=== PATIENT | male | born 1985 | race Two or more races ===

== ENCOUNTER 2021-02-25 04:02 | Emergency (ER) | payer OTHER ==
[~2021-02-25] VITALS: Ht 172.7 cm; Wt 81.8 kg
[2021-02-25] MEDS ORDERED: methylPREDNISolone SOD SUCC PF 125 MG/2 ML VIAL. IM ONE (04:15)
[2021-02-25] MEDS ORDERED: hydrOXYzine 25 MG TABLET PO PRN (04:15)
[2021-02-25] MEDS ORDERED: FAMOTIDINE 20 MG TABLET. PO ONE (04:15)
[2021-02-25] MEDS ORDERED: FAMO40TA57 PO (04:23)
[2021-02-25] MEDS ORDERED: HYDR25TA PO (04:23)
--- NOTE | 2021-02-25 04:24 | PHYS DOC ---
Past Medical History Past Medical History: No Pertinent History Past Surgical History: No Surgical History Smoking Status: Never Smoker Alcohol Use: Occasionally General Adult EDM: Chief Complaint: SKIN RASH/ABSCESS HPI: HPI: Patient is a 36 year [id number] male presents with a chief complaint of itchy rash. Patient states he was diagnosed with Covid on Friday onset of rash was also Friday. Patient's rash is located on his chest back and groin area. Patient states last night rash started to itch. Patient has taken Benadryl for the itch with no relief. Review of Systems: Review of Systems: Review of systems: Constitutional symptoms- No fever, no chills. Eyes- No Discharge, No Visual Loss Respiratory symptoms- No shortness of breath, No wheezing, No Dyspnea on Exertion Cardiovascular Systems; No chest pain, No Palpitations, No syncope Gastrointestinal symptoms: NO abdominal pain, no nausea, no vomiting or diarr hea. Genitourinary symptoms: No dysuria. Musculoskeletal symptoms: No back pain No extremity pain. NEUROLOGICAL Symptoms: No headache, no generalized weakness; No focal Weakness Skin positive rash Heart Score: C/O Chest Pain: N/A Risk Factors: Risk Factors: DM, Current or recent (<one month) smoker, HTN, HLP, family hi story of CAD, obesity. Risk Scores: Score 0 - 3: 2.5% MACE over next 6 weeks - Discharge Home Score 4 - 6: 20.3% MACE over next 6 weeks - Admit for Clinical Observation Score 7 - 10: 72.7% MACE over next 6 weeks - Early Invasive Strategies Current Medications: Current Medications Medications (Trade) Dose Ordered Sig/Nhan Start Time Stop Time Status Last Admin Dose Admin Famotidine (Pepcid) 20 mg 1X ONCE 02/25/21 04:15 02/25/21 04:16 DC Hydroxyzine HCl (Atarax) 25 mg 1X PRN 02/25/21 04:15 Methylprednisolone Sodium Succinate (SOLU-Medrol 125MG VIAL) 125 mg 1X ONCE 02/25/21 04:15 02/25/21 04:16 DC Allergies: Allergies: Allergies Coded Allergies Type Severity Reaction Last Updated Verified No Known Drug Allergies 02/25/21 No Physical Exam: PE: Constitutional: Well developed, well nourished, no acute distress, non-toxic appearance. [] HENT: Normocephalic, atraumatic, bilateral external ears normal, oropharynx moist, no oral exudates, nose normal. [] Eyes: PERRLA, EOMI, conjunctiva normal, no discharge. [] Neck: Normal range of motion, no tenderness, supple, no stridor. [] Cardiovascular:Heart rate regular rhythm, no murmur [] Lungs & Thorax: Bilateral breath sounds clear to auscultation [] Abdomen: Bowel sounds normal, soft, no tenderness, no masses, no pulsatile masses. [] Skin: Warm, dry, no erythema, positive rash chest abdomen back groin Back: No tenderness, no CVA tenderness. [] Extremities: No tenderness, no cyanosis, no clubbing, ROM intact, no edema. [] Neurologic: Alert and oriented X 3, normal motor function, normal sensory function, no focal deficits noted. [] Psychologic: Affect normal, judgement normal, mood normal. [] Current Patient Data: Vital Signs: Vital Signs Date Time Temp Pulse Resp B/P (MAP) Pulse Ox O2 Delivery O2 Flow Rate FiO2 02/25/21 04:04 98.2 79 18 149/98 (115) 99 Room Air 98.2 EKG: EKG: [] Radiology/Procedures: Radiology/Procedures: [] Course & Med Decision Making: Course & Med Decision Making Pertinent Labs and Imaging studies reviewed. (See chart for details) [] Treated with Solu-Medrol IM Atarax and Pepcid Patient discharged home on prednisone Atarax and Pepcid Leo Disclaimer: Leo Disclaimer: This electronic medical record was generated, in whole or in part, using a voice recognition dictation system. Departure Departure Impression: Primary Impression: Rash Additional Impression: Rash and nonspecific skin eruption Disposition: 01 HOME SELF CARE/HOMELESS Condition: STABLE Patient Instructions: Rash Scripts Hydroxyzine Hcl (HYDROXYZINE HCL) 25 Mg Tablet 1 TAB PO TID, #30 TAB Prov: WHIT DOWLING I DO 02/25/21 Famotidine (PEPCID) 40 Mg Tablet 40 MG PO HS, #28 TAB Prov: WHIT DOWLING I DO 02/25/21 WHTI DOWLING DO Feb 25, 2021 04:23
[2021-02-25 04:58] VITALS: BP 128/70
== END 2021-02-25 05:00 | disposition home or self-care (01) ==
LOC: ER 04:02
DX: R21 Rash and other nonspecific skin eruption (principal)
CPT/HCPCS: 96372; 99283; J2930